=== PATIENT | male | born 1960 | race Caucasian/White ===

== ENCOUNTER 2021-09-26 18:36 | Emergency (ER) | payer OTHER, SELFPAY ==
[2021-09-26 18:41] VITALS: BP 128/80; PULSE 109; RESP 18; TEMP 38.1; O2SAT 95; BMI 28.0
--- NOTE | 2021-09-26 19:02 | CTR_ITS ---
PROCEDURE INFORMATION: Exam: CT Abdomen And Pelvis With Contrast Exam date and time: 09/26/2021 8:00 PM Age: 61 years old Clinical indication: Abdominal pain; Localized; Right upper quadrant (ruq); Patient HX: C/O ruq pain with fever. ; Additional info: Ruq pain fever TECHNIQUE: Imaging protocol: Computed tomography of the abdomen and pelvis with contrast. Axial, coronal and sagittal reformatted images were created and reviewed. Radiation optimization: All CT scans at this facility use at least one of these dose optimization techniques: automated exposure control; mA and/or kV adjustment per patient size (includes targeted exams where dose is matched to clinical indication); or iterative reconstruction. Contrast material: OMNI 300; Contrast volume: 95 ml; Contrast route: INTRAVENOUS (IV); COMPARISON: US gall bladder [id number] 09/26/2021 7:26 PM RADIATION DOSE METRICS: Total DLP (mGy-cm): 1611.31 FINDINGS: Lungs: Mild dependent atelectatic change at the lung bases. Liver: Unremarkable. Gallbladder and bile ducts: Cholelithiasis and mild gallbladder distention with associated gallbladder wall thickening. Pancreas: Unremarkable. Spleen: Unremarkable. Adrenal glands: Normal. No mass. Kidneys and ureters: Nonobstructing right renal calculus. No hydronephrosis. Stomach and bowel: No bowel wall thickening. No obstruction. No pneumatosis. Appendix: Normal. Intraperitoneal space: No free fluid. No organized fluid collection. No free air. Vasculature: Unremarkable. No aneurysm. Lymph nodes: No pathologically enlarged lymph nodes. Urinary bladder: Mild circumferential urinary bladder wall thickening, likely secondary to underdistention. Reproductive: Unremarkable. Bones/joints: No acute osseous abnormality. Osteopenia. Mild degenerative changes. Soft tissues: Small, fat containing inguinal hernias. CT/CT abdomen pelvis w con* [id number] IMPRESSION: 1. Cholelithiasis and mild gallbladder distention with associated gallbladder wall thickening, concerning for acute cholecystitis. If clinically indicated, HIDA scan may be obtained for confirmation. 2. Additional findings, as above.
--- NOTE | 2021-09-26 19:02 | USR_ITS ---
PROCEDURE INFORMATION: Exam: US Abdomen, Limited; Right Upper Quadrant Exam date and time: 09/26/2021 7:26 PM Age: 61 years old Clinical indication: Nausea; Abdominal pain; Additional info: Ruq pain fever TECHNIQUE: Imaging protocol: US abdomen. Real time ultrasound with image documentation. Limited exam focused on the right upper quadrant. COMPARISON: No relevant prior studies available. FINDINGS: Gallbladder: Cholelithiasis and mild gallbladder distention with prominent associated gallbladder wall thickening. No pericholecystic fluid. Negative sonographic Rivera's sign, as per the performing director telehealth. Biliary ducts: Normal. No stones. No dilation. US/US gall bladder [id number] IMPRESSION: Cholelithiasis and mild gallbladder distention with prominent associated gallbladder wall thickening, concerning for acute cholecystitis. If clinically indicated, HIDA scan may be obtained for confirmation.
[2021-09-26 19:08] LABS: Basophils % 0.1 %; Hematocrit 47.6 % (42.0-52.0); Hemoglobin 16.3 g/dL (11.7-16.6); Lymphocytes # 0.3 10^3/uL (0.8-4.8); Lymphocytes % 1.9 %; Mean Corpuscular HGB Conc 34.2 g/dL (30.0-36.0); Mean Corpuscular Hemoglobin 29.1 pg (28.0-34.0); Mean Platelet Volume 10.5 fL (7.4-10.4); Monocytes % 6.7 %; Neutrophils # 13.74 10^3/uL (1.8-7.7); Neutrophils % 90.9 %; Nucleated Red Blood Cells % 0 %; Platelet Count 215 10^3/cmm (130-400); Red Cell Distribution Width 13.2 % (12.1-15.1); White Blood Count 15.1 10^3/uL (4.0-10.0)
--- NOTE | 2021-09-26 19:14 | ED_ITS ---
HPI - Abdominal Pain General: Chief Complaint: Abdominal Pain Stated Complaint: N/D gallstones Time Seen by Provider: 09/26/21 18:46 Source: patient and family History of Present Illness: 61-year-old male presents with right upper quadrant pain, nausea, vomiting, and fever on and off since Tuesday. No significant diarrhea. He notes the pain comes and goes in intensity. He has vomited at least 4 times today. No blood in the vomit. He has had a kidney stone in the past, with lithotripsy. No other belly surgery history. MD elicited complaint: abdominal pain Pertinent past history: none Onset (ago): day(s) Pain Consistency: constant Location: RUQ Severity: moderate Quality: aching Radiation: none Migration to: no migration Exacerbating factors: nothing Relieving factors: nothing Associated Symptoms: Reports anorexia, change in bowel habits, fever(s), nausea, poor appetite and vomiting; Denies coffee ground emesis, hematemesis, loose stools and melena Review of Systems Const: Reports: fever(s) ENMT: Denies: throat pain Card: Denies: chest pain Resp: Denies: dyspnea, productive cough or non-productive cough GI: Reports: nausea, vomiting and change in bowel habits; Denies: hematemesis, coffee ground emesis or melena Neuro: Denies: confusion Physical Exam Const: GENERAL APPEARANCE: cooperative and ill appearing (mildly) HENMT: COMMON NORMALS: normocephalic, atraumatic and Normal external nose present HEAD & SCALP: normocephalic and atraumatic FACE & SINUS: normal facial exam and face symmetric NOSE: Normal external nose present Eye: COMMON NORMALS: Equal, round and reactive pupils present and EOMs intact bilaterally PUPIL: Yes Equal, round and reactive pupils present Chest: COMMONS NORMALS: normal inspection of the chest Resp: COMMON NORMALS: normal respiratory effort, No use of accessory muscles and clear to auscultation bilaterally AUSCULTATION: clear to auscultation bilaterally Cardio: COMMON NORMALS: regular rate and regular rhythm RATE: regular rate RHYTHM: regular rhythm GI: COMMON NORMALS: Soft to palpation INSPECTION: Yes normal to inspection PALPATION: Yes Soft to palpation and Yes Tenderness to palpation present (GI) Details: LUQ : BLADDER/KIDNEY EXAM: Yes CVA tenderness on the right (mild) Back/Pelvis: GENERAL BACK: Yes CVA tenderness Extremity: COMMON NORMALS: no pedal edema Course Vital Signs: Vital signs: Vital Signs Temperature 98.4 F 09/26/21 22:54 Pulse Rate 80 09/26/21 23:35 Respiratory Rate 18 09/26/21 23:35 Blood Pressure 120/81 09/26/21 23:35 Pulse Oximetry 97 09/26/21 23:35 MDM - Abdominal Pain Medical Decision Making Leukocytosis of 15.1 with 90% neutrophils. Bicarbonate level is 20. BMP is otherwise essentially normal. Bilirubin is mildly elevated at 2. Mild elevati on of liver enzymes. Right upper quadrant ultrasound, and abdominal CT show a distended gallbladder with thickened wall and cholelithiasis. No common bile duct dilatation. We have no surgical services available this week at this facility. We have a call out to surgery at [facility]. In the meantime, the patient has received 2 L of fluid and Zosyn here. His pain is controlled at this point. Surgery at [facility] has accepted the patient. We will await a bed for transfer Lab Data : 09/26/21 19:00 09/26/21 19:00 Labs/Radiology: Radiology Impressions Abdomen/Pelvis CT 09/26/21 19:02 IMPRESSION: 1. Cholelithiasis and mild gallbladder distention with associated gallbladder wall thickening, concerning for acute cholecystitis. If clinically indicated, HIDA scan may be obtained for confirmation. 2. Additional findings, as above. Gallbladder Ultrasound 09/26/21 19:02 IMPRESSION: Cholelithiasis and mild gallbladder distention with prominent associated gallbladder wall thickening, concerning for acute cholecystitis. If clinically indicated, HIDA scan may be obtained for confirmation. Laboratory Results WBC 15.1 10^3/uL (4.0-10.0) H 09/26/21 19:00 RBC 5.60 10^6/uL (4.1-5.3) H 09/26/21 19:00 Hgb 16.3 g/dL (11.7-16.6) 09/26/21 19:00 Hct 47.6 % (42.0-52.0) 09/26/21 19:00 MCV 85.0 fl (80-94) 09/26/21 19:00 MCH 29.1 pg (28.0-34.0) 09/26/21 19:00 MCHC 34.2 g/dL (30.0-36.0) 09/26/21 19:00 RDW 13.2 % (12.1-15.1) 09/26/21 19:00 Plt Count 215 10^3/cmm (130-400) 09/26/21 19:00 MPV 10.5 fL (7.4-10.4) H 09/26/21 19:00 Neut % (Auto) 90.9 % 09/26/21 19:00 Lymph % (Auto) 1.9 % 09/26/21 19:00 Riley % (Auto) 6.7 % 09/26/21 19:00 Eos % (Auto) 0.0 % 09/26/21 19:00 Baso % (Auto) 0.1 % 09/26/21 19:00 Neut # (Auto) 13.74 10^3/uL (1.8-7.7) H 09/26/21 19:00 Lymph # (Auto) 0.3 10^3/uL (0.8-4.8) L 09/26/21 19:00 Riley # (Auto) 1.0 10^3/uL (0.2-0.9) H 09/26/21 19:00 Eos # (Auto) 0.0 10^3/uL (0.0-0.8) 09/26/21 19:00 Baso # (Auto) 0.0 10^3/uL (0.0-0.1) 09/26/21 19:00 Nucleated RBC % (auto) 0 % 09/26/21 19:00 Nucleated RBCs # 0.0 /100WBC 09/26/21 19:00 Sodium 134 mmol/L (136-145) L 09/26/21 19:00 Potassium 4.0 mmol/L (3.5-5.1) 09/26/21 19:00 Chloride 100 mmol/L (98-107) 09/26/21 19:00 Carbon Dioxide 20 mmol/L (22-29) L 09/26/21 19:00 Anion Gap 18.0 (5-19) 09/26/21 19:00 BUN 10 mg/dL (6-20) 09/26/21 19:00 Creatinine 0.9 mg/dL (0.7-1.2) 09/26/21 19:00 GFR Calculation 86.4 mL/min (90-130) L 09/26/21 19:00 Glucose 139 mg/dL (65-115) H 09/26/21 19:00 Calculated Osmolality 279 mOsm/kg (285-295) L 09/26/21 19:00 Calcium 8.4 mg/dL (8.5-10.5) L 09/26/21 19:00 Total Bilirubin 1.9 mg/dL (0.15-1.2) H 09/26/21 19:00 AST 269 U/L (0-40) H 09/26/21 19:00 ALT 306 U/L (0-41) H 09/26/21 19:00 Alkaline Phosphatase 128 IU/L (40-130) 09/26/21 19:00 C-Reactive Protein 29.4 mg/L (0.0-4.9) H 09/26/21 19:00 Total Protein 7.0 g/dL (6.6-8.7) 09/26/21 19:00 Albumin 4.5 g/dL (3.5-5.2) 09/26/21 19:00 Globulin 2.5 g/dL (1.3-4.6) 09/26/21 19:00 Lipase 28 U/L (13-60) 09/26/21 19:00 Urine Color Yellow (Yellow) 09/26/21 20:44 Urine Appearance Clear (CLEAR) 09/26/21 20:44 Urine pH 8 (5-7) H 09/26/21 20:44 Ur Specific [place] 1.010 (1.005-1.030) 09/26/21 20:44 Urine Protein Neg (Negative) 09/26/21 20:44 Urine Glucose (UA) Norm (Normal) 09/26/21 20:44 Urine Ketones Negative (Negative) 09/26/21 20:44 Urine Blood Neg (Negative) 09/26/21 20:44 Urine Nitrate Negative (Negative) 09/26/21 20:44 Urine Bilirubin Neg (Negative) 09/26/21 20:44 Prot Sulfosalicylic Acd Negative (Negative) 09/26/21 20:44 Urine Urobilinogen Norm mg/dL (Negative) 09/26/21 20:44 Ur Leukocyte Esterase Negative (Negative) 04/30/22 20:44 Discharge Plan Discharge Patient Disposition: Xfer Short-Term Hosp Clinical Impression: Acute cholecystitis Condition: Fair Coding Level of Care Code ED Dampener Operator for Chg Fwd Exam Comprehensive
[2021-09-26 19:51] LABS: Alanine Aminotransferase 306 U/L (0-41); Albumin Level 4.5 g/dL (3.5-5.2); Alkaline Phosphatase 128 IU/L (40-130); Aspartate Amino Transferase 269 U/L (0-40); Blood Urea Nitrogen 10 mg/dL (6-20); C Reactive Protein 29.4 mg/L (0.0-4.9); Calcium 8.4 mg/dL (8.5-10.5); Carbon Dioxide 20 mmol/L (22-29); Chloride 100 mmol/L (98-107); Globulin 2.5 g/dL (1.3-4.6); Glomerular Filtration Rate 86.4 mL/min (90-130); Glucose 139 mg/dL (65-115); Lipase 28 U/L (13-60); Osmolality Calculated 279 mOsm/kg (285-295); Sodium 134 mmol/L (136-145); Total Bilirubin 1.9 mg/dL (0.15-1.2)
[2021-09-26] MEDS: iohexol 300 mg/mL 100 mL Btl IV (20:01)
[2021-09-26 20:11] VITALS: RESP 14; O2SAT 93
[2021-09-26] MEDS: morphine 4 mg/mL SDV 1 mL IVP (20:11)
[2021-09-26] MEDS: sodium chloride 0.9% 1,000 ML 999 ML IV ×2 (20:11→21:27)
[2021-09-26] MEDS: famotidine 20 mg/2 mL INJ IVP (20:11)
[2021-09-26] MEDS: ondansetron 2 mg/ML SDV 2 mL 4 MG IVP (20:11)
[2021-09-26 20:12] VITALS: BP 128/76; PULSE 75; RESP 14; O2SAT 93
[2021-09-26 20:53] LABS: Add Urine Microscopic? NO; Charge for UA Resulting for Rev
[2021-09-26 21:05] LABS: Bilirubin Urine Neg (Negative); Blood Urine Neg (Negative); Glucose Urine UA Norm (Normal); Ketones Urine Negative (Negative); Leukocyte Esterase Urine Negative (Negative); Nitrate Urine Negative (Negative); Protein Urine Neg (Negative); Sulfosalicylic Acid Urine Negative (Negative); Urine Appearance Clear (CLEAR); Urine Color Yellow (Yellow); Urobilinogen Urine Norm (Negative); pH Urine 8 (5-7)
[2021-09-26 21:27] VITALS: BP 121/73; PULSE 71; RESP 14; O2SAT 94
[2021-09-26] MEDS: piperacillin-tazobactam 3.375 GM in sodium chloride 0.9% (plus) 50 ML IV (21:27)
--- NOTE | 2021-09-26 22:53 | PC.NURSE ---
Report called to Kati OROPEZA at [phone].
[2021-09-26 22:54] VITALS: BP 128/78; PULSE 78; RESP 14; TEMP 36.9; O2SAT 95
[2021-09-26 23:35] VITALS: BP 120/81; PULSE 80; RESP 18; O2SAT 97
== END 2021-09-26 23:39 | disposition short-term general hospital (02) ==
PROVIDERS: Emergency Medicine; Emergency Provider Emergency Medicine
DX: K81.0 Acute cholecystitis (principal)
CPT/HCPCS: 74177; 76705; 80053; 81003; 83690; 85025; 86140; 96365; 96375; 99285; J2270; J2405; J2543; J3490; J7030; Q9967